=== PATIENT | male | born 1970 | race Caucasian/White ===

== ENCOUNTER 2024-12-19 13:19 | Observation (INO) ==
--- NOTE | 2024-12-19 13:32 | DR.ABDMALE ---
HPI Time seen Time Seen by Provider: 12/19/24 13:31 Reviewed Nurses Notes Review: Yes PE Vital Signs Vital Signs: Temp Pulse Resp BP Pulse Ox O2 Del Method 12/19/24 14:42 18 12/19/24 14:12 22 12/19/24 13:20 98.6 F 81 22 145/71 94 L Room Air ROR Labs Reviewed 12/19/24 13:50 12/19/24 13:50 Laboratory: WBC 11.0 X10^3/uL (3.6-10.0) H 12/19/24 13:50 RBC 5.26 X10^6/uL (4.7-6.0) 12/19/24 13:50 Hgb 15.8 g/dL (13.5-18.0) 12/19/24 13:50 Hct 47.1 % (42.0-54.0) 12/19/24 13:50 MCV 89.7 fL (80.0-100.0) 12/19/24 13:50 MCH 30.1 pg (27.0-34.0) 12/19/24 13:50 MCHC 33.6 g/dL (33.0-35.0) 12/19/24 13:50 RDW 16.0 % (11.6-16.5) 12/19/24 13:50 Plt Count 153 X10^3/uL (150.0-450.0) 12/19/24 13:50 MPV 9.4 fL (7.4-11.0) 12/19/24 13:50 Neut % (Auto) 72.3 % (42.0-75.0) 12/19/24 13:50 Lymph % (Auto) 19.0 % (21.0-51.0) L 12/19/24 13:50 [place] % (Auto) 7.4 % (0.0-13.0) 12/19/24 13:50 Eos % (Auto) 0.5 % (0.9-2.9) L 12/19/24 13:50 Baso % (Auto) 0.8 % (0.2-1.0) 12/19/24 13:50 Neut # (Auto) 8.0 x10^3/uL (2.2-4.8) H 12/19/24 13:50 Lymph # (Auto) 2.1 X10^3/uL (1.3-2.9) 12/19/24 13:50 [place] # (Auto) 0.8 x10^3/uL (0.3-0.8) 12/19/24 13:50 Eos # (Auto) 0.1 x10^3/uL (0.0-0.2) 12/19/24 13:50 Baso # (Auto) 0.1 X10^3/uL (0.0-0.1) 12/19/24 13:50 Absolute Nucleated RBC 0.1 /100WBC 12/19/24 13:50 Sodium 134 mmol/L (136-145) L 12/19/24 13:50 Corrected Sodium 138 mmol/L (136-145) 12/19/24 13:50 Potassium 3.4 mmol/L (3.5-5.1) L 12/19/24 13:50 Chloride 100 mmol/L (98-107) 12/19/24 13:50 Carbon Dioxide 23.4 mmol/L (21-32) 12/19/24 13:50 BUN 16 mg/dL (7-18) 12/19/24 13:50 Creatinine 0.90 mg/dL (0.70-1.30) 12/19/24 13:50 Est GFR (MDRD) Af Amer > 60 (>60) 12/19/24 13:50 Est GFR (MDRD) Non-Af > 60 (>60) 12/19/24 13:50 Glucose 247 mg/dL (65-99) H 12/19/24 13:50 Calcium 8.4 mg/dL (8.5-10.1) L 12/19/24 13:50 Corrected Calcium 9.4 mg/dL (8.5-10.1) 12/19/24 13:50 Magnesium 1.7 mg/dL (2.0-2.9) L 12/19/24 13:50 Total Bilirubin 0.50 mg/dL (0.2-1.0) 12/19/24 13:50 AST 26 Units/L (15-37) 12/19/24 13:50 ALT 31 Units/L (12-78) 12/19/24 13:50 Alkaline Phosphatase 87 Units/L (46-116) 12/19/24 13:50 B-Natriuretic Peptide 6.7 pg/mL (0-79) 12/19/24 13:50 Total Protein 6.3 g/dL (6.4-8.2) L 12/19/24 13:50 Albumin 2.8 g/dL (3.4-5.0) L 12/19/24 13:50 Globulin 3.5 g/dL (2.5-4.5) 12/19/24 13:50 Albumin/Globulin Ratio 0.8 Ratio (1.1-2.1) L 12/19/24 13:50 Amylase 11 Units/L (25-115) L 12/19/24 13:50 Lipase 9 Units/L (16-77) L 12/19/24 13:50 Opioid Opioid Risk Tool Total: 0 Total Score Risk Category: Low Risk Copyright: David JANG predicting aberrant behaviors Discharge Plan Discharge Plan Patient Disposition: 01 HOME, SELF-CARE Condition: Stable Orders to Discharge Patient Discharge Orders: Transfer (Routine); Ordered 12/19/24 Ordered By: YANA MEIER
[2024-12-19] MEDS: ZOFRAN INJ 4 MG VIAL IVP ONE (13:52)
[2024-12-19] MEDS: DEMEROL INJ IVP ONE (14:12)
[2024-12-19] MEDS: NS 1,000 ML IV 1,000 ML IV SCH (14:18)
[2024-12-19 14:22] LABS: BASOPHILS # (AUTO) 0.1 X10^3/uL (0.0-0.1); BASOPHILS % (AUTO) 0.8 % (0.2-1.0); EOSINOPHILS # (AUTO) 0.1 x10^3/uL (0.0-0.2); EOSINOPHILS % (AUTO) 0.5 % (0.9-2.9); HEMATOCRIT 47.1 % (42.0-54.0); HEMOGLOBIN 15.8 g/dL (13.5-18.0); LYMPHOCYTES # (AUTO) 2.1 X10^3/uL (1.3-2.9); MEAN CORPUSCULAR HEMOGLOBIN 30.1 pg (27.0-34.0); MEAN CORPUSCULAR HGB CONC 33.6 g/dL (33.0-35.0); MEAN CORPUSCULAR VOLUME 89.7 fL (80.0-100.0); MEAN PLATELET VOLUME 9.4 fL (7.4-11.0); MONOCYTES # (AUTO) 0.8 x10^3/uL (0.3-0.8); MONOCYTES % (AUTO) 7.4 % (0.0-13.0); NEUTROPHILS % (AUTO) 72.3 % (42.0-75.0); PLATELET COUNT 153 X10^3/uL (150.0-450.0); RED BLOOD COUNT 5.26 X10^6/uL (4.7-6.0)
[2024-12-19 14:26] LABS: ALANINE AMINOTRANSFERASE 31 Units/L (12-78); ALBUMIN 2.8 g/dL (3.4-5.0); ALKALINE PHOSPHATASE 87 Units/L (46-116); AMYLASE 11 Units/L (25-115); ASPARTATE AMINO TRANSFERASE 26 Units/L (15-37); BLOOD UREA NITROGEN 16 mg/dL (7-18); CALCIUM 8.4 mg/dL (8.5-10.1); CARBON DIOXIDE 23.4 mmol/L (21-32); CHLORIDE 100 mmol/L (98-107); COR CA(FOR HYPOALB) 9.4 mg/dL (8.5-10.1); COR NA(FOR HYPERGLY) 138 mmol/L (136-145); GLUCOSE 247 mg/dL (65-99); LIPASE 9 Units/L (16-77); POTASSIUM 3.4 mmol/L (3.5-5.1); SODIUM 134 mmol/L (136-145); TOTAL PROTEIN 6.3 g/dL (6.4-8.2); eGFR NON BLACK RACES > 60 (>60)
[2024-12-19] MEDS: BENTYL I.M. INJ 10 MG IM ONE (14:43)
[2024-12-19 15:15] LABS: MAGNESIUM 1.7 mg/dL (2.0-2.9)
[2024-12-19] MEDS: PROTONIX INJ 40 MG VIAL IVP ONE (15:37)
[2024-12-19] MEDS: SOLU-Medrol 125 MG VIAL IVP ONE (15:41)
--- NOTE | 2024-12-19 15:46 | CT ---
EXAMINATION: ABDOMEN/PELVIS W/O CON HISTORY: ABD PAIN; . COMPARISON: None. TECHNIQUE: Unenhanced axial images were obtained through the abdomen and pelvis using renal stone protocol. Reformatted images were obtained as well. Lack of oral and IV contrast limits diagnostic sensitivity The above CT scan was done with automated exposure control and the mA and kV was adjusted to obtain quality images according to patient size. FINDINGS: Lung bases: No acute findings Liver: No acute findings or focal lesions. GB/Biliary: Cholecystectomy. No dilated ducts Spleen: Normal size and density Pancreas: No acute findings. No pseudocyst or dilated duct Adrenal Glands: No mass Kidneys: No obstructing stone, hydronephrosis or solid lesions. Abdominal aorta: Tapers normally Retroperitoneum: No pathologically enlarged lymph nodes Bowel: There is diffuse pancolitis most severe in the transverse colon and right colon. No free air, pneumatosis or abscess. This can be seen with infectious or inflammatory process, Crohn's disease or ulcerative colitis, ischemia. No CT evidence for appendicitis or obstruction. Periumbilical hernia containing fat Bladder/: Ureters and bladder unremarkable. Prostate and seminal vesicles are intact Osseous: Multilevel degenerative changes in the spine. No acute findings or bony lesions. IMPRESSION: Diffuse pancolitis. No free air, pneumatosis or abscess. Consider endoscopy posttreatment. No CT evidence for appendicitis obstruction, obstructing renal stone THIS IS AN ELECTRONICALLY VERIFIED FINAL REPORT 12/19/2024 3:43 PM - Electronically signed by Dilip Dotson MD
[2024-12-19] MEDS: NICOTINE PATCH TD SCH (19:48)
[2024-12-19] MEDS: NORCO 5/325 MG TAB PO PRN (19:48)
--- NOTE | 2024-12-19 20:14 | DR.H&P ---
H&P History & Physical for Day of: H&P Date: 12/19/24 Chief Complaint Chief Complaint: abdominal pain History of Present Illness History of Present Illness: 54-year-old male visiting the area with known history of intermittent colitis with exacerbation approxi once a year who presented with a several hour history of abdominal pain and was evaluated in the emergency room. CT scan consistent with pancolitis of the colon primarily involving the transverse colon which is the area of his pain. Past history of tobacco abuse, COPD, hypertension, gastro-esophageal reflux, and hyperlipidemia. Patient be admitted for IV antibiotics and steroids. Also will require serial examinations of the abdomen. Past Medical History Past Medical History: Anxiety, Arthritis, COPD, GERD and Hypertension Additional Medical History: tobacco abuse Past Surgical History Surgical History: Cholecystectomy and Tonsillectomy Family History Family Medical History: Diabetes Mellitus, Cancer, Coronary Artery Disease, Heart Failure and Hypertension Social History Does patient currently use any type of tobacco product: Yes Type of Tobacco Use: Cigarettes How many years tobacco product used: 32 Packs per day or dips/chews per day: 1 Does any household member use tobacco: Yes Alcohol Use: None Drug Use: None Medications Home Medications: Home Medications Medication Instructions Recorded Confirmed Type albuterol sulfate 90 mcg/actuation 2 puff inhalation Q 4H PRN 12/19/24 12/19/24 History aerosol inhaler aspirin 81 mg tablet 81 mg PO HS 12/19/24 5 History carisoprodol 350 mg tablet (Soma) 350 mg PO Q6H PRN mu scle spasms 12/19/24 12/19/24 History celecoxib 200 mg capsule 200 mg PO QDAY 12/19/2404/06 History glipizide 10 mg tablet, extended 10 mg PO BID 12/19/24 12/19/24 History release 24 hr hydrochlorothiazide 12.5 mg tablet 12.5 mg PO QDAY swe lling 12/19/24 12/19/24 History lisinopril 20 mg tablet 20 mg PO QDAY blood pressure 12/19/24 12/19/24 History lorazepam 1 mg tablet (Ativan) 1 mg PO Q6HR PRN Anxiet y 12/19/24 12/19/24 History lorazepam 2 mg tablet (Ativan) 2 mg PO HS 12/19/2404/06 History omeprazole 20 mg capsule,delayed 20 mg PO HS 12/19/24 12/19/24 History release oxycodone-acetaminophen 5 mg-325 1 - 2 tab PO Q6HR PRN Pain 12/19/24 12/19/24 History mg tablet (Percocet) pioglitazone 30 mg tablet 30 mg PO QAM 12/19/24 History ropinirole 3 mg tablet 6 mg PO QPM restless legs 12/19/24 History rosuvastatin 20 mg tablet 20 mg PO QPM cholesterol 04/0612/19/24 History Allergies Allergies Allergy/AdvReac Type Severity Reaction Status Date / Time cephalexin (From [place]yst) Allergy Verified 12/19/24 13:27 morphine Allergy Verified 12/19/24 13:27 Labs 12/19/24 13:50 12/19/24 13:50 Labs: Laboratory WBC 11.0 X10^3/uL (3.6-10.0) H 12/19/24 13:50 RBC 5.26 X10^6/uL (4.7-6.0) 12/19/24 13:50 Hgb 15.8 g/dL (13.5-18.0) 12/19/24 13:50 Hct 47.1 % (42.0-54.0) 12/19/24 13:50 MCV 89.7 fL (80.0-100.0) 12/19/24 13:50 MCH 30.1 pg (27.0-34.0) 12/19/24 13:50 MCHC 33.6 g/dL (33.0-35.0) 12/19/24 13:50 RDW 16.0 % (11.6-16.5) 12/19/24 13:50 Plt Count 153 X10^3/uL (150.0-450.0) 12/19/24 13:50 MPV 9.4 fL (7.4-11.0) 12/19/24 13:50 Neut % (Auto) 72.3 % (42.0-75.0) 12/19/24 13:50 Lymph % (Auto) 19.0 % (21.0-51.0) L 12/19/24 13:50 [place] % (Auto) 7.4 % (0.0-13.0) 12/19/24 13:50 Eos % (Auto) 0.5 % (0.9-2.9) L 12/19/24 13:50 Baso % (Auto) 0.8 % (0.2-1.0) 12/19/24 13:50 Neut # (Auto) 8.0 x10^3/uL (2.2-4.8) H 12/19/24 13:50 Lymph # (Auto) 2.1 X10^3/uL (1.3-2.9) 12/19/24 13:50 Leon # (Auto) 0.8 x10^3/uL (0.3-0.8) 12/19/24 13:50 Eos # (Auto) 0.1 x10^3/uL (0.0-0.2) 12/19/24 13:50 Baso # (Auto) 0.1 X10^3/uL (0.0-0.1) 12/19/24 13:50 Absolute Nucleated RBC 0.1 /100WBC 12/19/24 13:50 Sodium 134 mmol/L (136-145) L 12/19/24 13:50 Corrected Sodium 138 mmol/L (136-145) 12/19/24 13:50 Potassium 3.4 mmol/L (3.5-5.1) L 12/19/24 13:50 Chloride 100 mmol/L (98-107) 12/19/24 13:50 Carbon Dioxide 23.4 mmol/L (21-32) 12/19/24 13:50 BUN 16 mg/dL (7-18) 12/19/24 13:50 Creatinine 0.90 mg/dL (0.70-1.30) 12/19/24 13:50 Est GFR (MDRD) Af Amer > 60 (>60) 12/19/24 13:50 Est GFR (MDRD) Non-Af > 60 (>60) 12/19/24 13:50 Glucose 247 mg/dL (65-99) H 12/19/24 13:50 Calcium 8.4 mg/dL (8.5-10.1) L 12/19/24 13:50 Corrected Calcium 9.4 mg/dL (8.5-10.1) 12/19/24 13:50 Magnesium 1.7 mg/dL (2.0-2.9) L 12/19/24 13:50 Total Bilirubin 0.50 mg/dL (0.2-1.0) 12/19/24 13:50 AST 26 Units/L (15-37) 12/19/24 13:50 ALT 31 Units/L (12-78) 12/19/24 13:50 Alkaline Phosphatase 87 Units/L (46-116) 12/19/24 13:50 B-Natriuretic Peptide 6.7 pg/mL (0-79) 12/19/24 13:50 Total Protein 6.3 g/dL (6.4-8.2) L 12/19/24 13:50 Albumin 2.8 g/dL (3.4-5.0) L 12/19/24 13:50 Globulin 3.5 g/dL (2.5-4.5) 12/19/24 13:50 Albumin/Globulin Ratio 0.8 Ratio (1.1-2.1) L 12/19/24 13:50 Amylase 11 Units/L (25-115) L 12/19/24 13:50 Lipase 9 Units/L (16-77) L 12/19/24 13:50 Review of Systems Constitutional: See HPI Eyes: No Symptoms Reported ENT: No Symptoms Reported Respiratory: No Symptoms Reported Cardiovascular: No Symptoms Reported Gastrointestinal: See HPI Genitourinary: No Symptoms Reported Musculoskeletal: No Symptoms Reported Skin: No Symptoms Reported Neurological: No Symptoms Reported Physical Exam Vital Signs: Vital Signs Temperature 98.2 F Temperature 98.6 F Pulse Rate [Radial] 76 Pulse Rate 81 Respiratory Rate 16 Respiratory Rate 18 Respiratory Rate 22 Respiratory Rate 22 Blood Pressure [Left Arm] 116/62 Blood Pressure 147/72 Blood Pressure 145/71 O2 Sat by Pulse Oximetry 94 O2 Sat by Pulse Oximetry 94 Oriented: Normal, Time, Person and Place Eyes: Normal Ear: Normal Nose: Normal Throat: Normal Respiratory: Clear Throughout Cardiovascular: Normal : Normal Auscultation: Bowel Sounds: Normal Palpation: Normal Tenderness: Epigastric (diffusely tender with no rebound) Skin: Normal Musculoskeletal: Normal Psychiatric: Anxiety Mood Description: Anxious Affect: Normal Speech Pattern: Clear and Appropriate Assessment/Plan (1) Pancolitis: Status: Acute Plan: IV antibiotics. IV steroids (2) Chronic obstructive pulmonary disease, unspecified: Status: Acute Plan: Home medications (3) Tobacco abuse: Status: Acute Plan: Nicotine patch (4) Type 2 diabetes mellitus without complications: Status: Acute Plan: Diabetic diet, sliding scale insulin (5) Arthritis: Status: Acute Plan: Home medications (6) Essential (primary) hypertension: Status: Acute Plan: home medications (7) Anxiety: Status: Acute Plan: Home medications (8) Gastro-esophageal reflux disease without esophagitis: Status: Acute Plan: Home medications (9) Hyperlipidemia: Status: Acute Plan: Home medications (10) Restless leg syndrome: Status: Acute Plan: Home medications Review H&P Reviewed: Yes Patient was examined?: Yes
[2024-12-19] MEDS ORDERED: PROVENTIL NEB TX 0.083% 2.5MG/ 3ML NEB PRN (20:17)
[2024-12-19] MEDS ORDERED: NS 250 ML IV 25 ML IV PRN (20:18)
[2024-12-19] MEDS ORDERED: VENTOLIN or PROAIR HFA IN PRN (20:18)
[2024-12-19] MEDS: KLOR-CON PO SCH (20:20)
[2024-12-19] MEDS: MAG-OX TAB PO SCH (20:20)
[2024-12-19] MEDS: PHENERGAN INJ 25 MG IM PRN (20:21)
[2024-12-19] MEDS ORDERED: CONSULT PHARMACY - POTASSIUM & MAGNESIUM XX SCH (21:00)
[2024-12-19] MEDS: LR 1,000 ML IV 1,000 ML IV SCH (21:28)
[2024-12-19] MEDS: SOLU-Medrol 40 MG VIAL IVP SCH (21:29)
[2024-12-19] MEDS: ZOSYN VIAL 3.375 GRAMS 3.375 G in NS 100 ML IV 100 ML IV SCH (21:29)
[2024-12-19] MEDS: SOMA TAB 350 MG PO SCH (21:30)
[2024-12-19] MEDS: ATIVAN TAB 1 MG PO SCH (21:36)
[2024-12-19] MEDS: CRESTOR TAB 10 MG PO SCH (21:36)
[2024-12-20] MEDS: NovoLIN R (or HumuLIN R) SUBCUT PRN (01:08)
[2024-12-20] MEDS: ATIVAN TAB 1 MG PO PRN (01:17)
[2024-12-20] MEDS: DEMEROL INJ ONE (02:36)
[2024-12-20] MEDS: SOLU-Medrol 125 MG VIAL ONE (02:36)
[2024-12-20] MEDS: STERILE WATER IRRIGATION IR ONE (02:36)
[2024-12-20] MEDS: ZOFRAN INJ 4 MG VIAL IVP PRN (05:46)
[2024-12-20] MEDS: DILAUDID INJ IVP PRN (05:46)
[2024-12-20 05:56] LABS: BASOPHILS % (AUTO) 0.2 % (0.2-1.0); HEMATOCRIT 42.9 % (42.0-54.0); HEMOGLOBIN 14.9 g/dL (13.5-18.0); LYMPHOCYTES % (AUTO) 11.4 % (21.0-51.0); MEAN CORPUSCULAR HGB CONC 34.7 g/dL (33.0-35.0); MEAN CORPUSCULAR VOLUME 89.4 fL (80.0-100.0); MEAN PLATELET VOLUME 9.6 fL (7.4-11.0); MONOCYTES # (AUTO) 0.3 x10^3/uL (0.3-0.8); MONOCYTES % (AUTO) 2.9 % (0.0-13.0); NEUTROPHILS # (AUTO) 7.7 x10^3/uL (2.2-4.8); NEUTROPHILS % (AUTO) 85.5 % (42.0-75.0); PLATELET COUNT 150 X10^3/uL (150.0-450.0); RED CELL DISTRIBUTION WIDTH 16.1 % (11.6-16.5)
[2024-12-20 06:06] LABS: ALANINE AMINOTRANSFERASE 29 Units/L (12-78); ALBUMIN 2.5 g/dL (3.4-5.0); ALKALINE PHOSPHATASE 73 Units/L (46-116); ASPARTATE AMINO TRANSFERASE 19 Units/L (15-37); BLOOD UREA NITROGEN 15 mg/dL (7-18); CALCIUM 8.4 mg/dL (8.5-10.1); CARBON DIOXIDE 30.2 mmol/L (21-32); CHLORIDE 101 mmol/L (98-107); COR CA(FOR HYPOALB) 9.6 mg/dL (8.5-10.1); COR NA(FOR HYPERGLY) 141 mmol/L (136-145); CREATININE 0.83 mg/dL (0.70-1.30); GLUCOSE 292 mg/dL (65-99); MAGNESIUM 1.9 mg/dL (2.0-2.9); POTASSIUM 3.8 mmol/L (3.5-5.1); SODIUM 136 mmol/L (136-145); TOTAL PROTEIN 5.8 g/dL (6.4-8.2); eGFR NON BLACK RACES > 60 (>60)
[2024-12-20] MEDS ORDERED: CONSULT PHARMACY - POTASSIUM & MAGNESIUM XX SCH (08:00)
[2024-12-20] MEDS ORDERED: PATIENT'S HOME MEDICATION (Hydrochlorothiazide 12.5 mg tablet) PO SCH (09:00)
[2024-12-20] MEDS: K-DUR TAB 20 MEQ PO SCH (09:03)
[2024-12-20] MEDS: CELEBREX PO SCH (09:03)
[2024-12-20] MEDS: ZESTRIL TAB 20 MG PO SCH (09:04)
[2024-12-20] MEDS: MAG-OX TAB PO SCH (09:04)
[2024-12-20] MEDS: PROTONIX TAB 40 MG PO SCH (09:04)
[2024-12-20] MEDS: HYDROCHLOROTHIAZIDE 12.5 MG CAP PO SCH (09:04)
[2024-12-20] MEDS: ASPIRIN EC 81 MG PO SCH (09:04)
[2024-12-20] MEDS: ZESTRIL TAB 20 MG ONE (11:19)
[2024-12-20] MEDS: LOVENOX INJ 40 MG SYR SC SCH (12:55)
[2024-12-20] MEDS: TYLENOL 325 MG TAB PO PRN (16:17)
--- NOTE | 2024-12-20 17:09 | NOTE.SOAP ---
Soap Note Note for Day of Date of Exam: 12/20/24 Subjective Data Subjective Data: Patient admitted with pancolitis. Started on IV antibiotics and IV Solu-Medrol. Patient feels better today abdomen is noted to be less tender. Objective Data Temperature: 97.5 F Pulse Rate: 60 Respiratory Rate: 20 Blood Pressure: 104/55 O2 Sat by Pulse Oximetry: 91 Objective Data: Abdomen less tender in the epigastric region. Blood sugars greater than 300 as expected with history of diabetes and use of steroids. White blood cell count=9.0 glucose hovering around 300 Assessment Assessment: Pancolitis of the colon appears to be improving symptomatically. Plan Plan: Continue antibiotics and steroids. Will monitor blood sugars. Will begin a diet. Follow-up with routine labs and exams
[2024-12-20] MEDS: SOLU-Medrol 125 MG VIAL IVP SCH (20:56)
[2024-12-20] MEDS: SNACK - Diabetic Appropriate PO SCH (20:57)
[2024-12-20] MEDS: REQUIP PO SCH (22:08)
[2024-12-20] MEDS: NEURONTIN TAB 600 MG PO SCH (22:08)
[2024-12-21 00:30] VITALS: O2SAT 94
[2024-12-21 06:12] LABS: BLOOD UREA NITROGEN 18 mg/dL (7-18); CALCIUM 8.4 mg/dL (8.5-10.1); CARBON DIOXIDE 25.6 mmol/L (21-32); CHLORIDE 103 mmol/L (98-107); COR NA(FOR HYPERGLY) 143 mmol/L (136-145); CREATININE 0.83 mg/dL (0.70-1.30); GLUCOSE 331 mg/dL (65-99); MAGNESIUM 2.2 mg/dL (2.0-2.9); POTASSIUM 4.1 mmol/L (3.5-5.1); SODIUM 137 mmol/L (136-145); eGFR NON BLACK RACES > 60 (>60)
[2024-12-21 06:24] LABS: BASOPHILS % (AUTO) 0.4 % (0.2-1.0); HEMATOCRIT 41.6 % (42.0-54.0); HEMOGLOBIN 14.2 g/dL (13.5-18.0); LYMPHOCYTES # (AUTO) 1.7 X10^3/uL (1.3-2.9); LYMPHOCYTES % (AUTO) 13.8 % (21.0-51.0); MEAN CORPUSCULAR HEMOGLOBIN 30.4 pg (27.0-34.0); MEAN CORPUSCULAR HGB CONC 34.2 g/dL (33.0-35.0); MEAN PLATELET VOLUME 9.9 fL (7.4-11.0); MONOCYTES # (AUTO) 0.6 x10^3/uL (0.3-0.8); MONOCYTES % (AUTO) 4.6 % (0.0-13.0); NEUTROPHILS # (AUTO) 9.9 x10^3/uL (2.2-4.8); NEUTROPHILS % (AUTO) 81.2 % (42.0-75.0); PLATELET COUNT 173 X10^3/uL (150.0-450.0); RED BLOOD COUNT 4.67 X10^6/uL (4.7-6.0); RED CELL DISTRIBUTION WIDTH 15.8 % (11.6-16.5); WHITE BLOOD COUNT 12.2 X10^3/uL (3.6-10.0)
[2024-12-21 07:32] VITALS: BP 143/89; PULSE 82; RESP 17; TEMP 97.4
[2024-12-21 08:35] VITALS: BMI 47.5
[2024-12-21] MEDS: ZESTRIL TAB 20 MG ONE (08:44)
--- NOTE | 2024-12-21 09:52 | W.DIS.FURT ---
Summary of Discharge Discharge Summary of Date Date of Exam: 12/21/24 Admission Date Date of Admission: 12/19/24 Admission Diagnosis Patient Problems (Updated 12/19/24 @ 20:12 by David Rosario) Pancolitis (Acute) K52.9 Hospital Course: This is a 54-year-old male with history of intermittent colitis with exacerbations presented with abdominal pain to the emergency room primarily in the epigastric region and CT scan consistent with pancolitis ,primarily of the transverse colon. Patient admitted and placed on IV antibiotics and IV Solu- Medrol. His pain is relieved. His white blood cell count is down to 12,000. He will be discharged home on his usual home medications plus Flagyl 500 mg 3 times daily x 1 week and a tapering dose of prednisone. Patient will follow-up with his primary care physician or with his equine pharmacology technician in [place]. Vital Signs: Vital Signs (72 hours) 12/19/24 13:20 12/19/24 14:12 12/19/24 14:42 Temperature 98.6 F Pulse Rate 81 Pulse Rate [Radial] Respiratory Rate 22 22 18 Blood Pressure 145/71 Blood Pressure [Left Arm] O2 Sat by Pulse Oximetry 94 L Oxygen Delivery Method Room Air 12/19/24 18:10 12/19/24 18:30 12/19/24 18:36 Temperature 98.2 F Pulse Rate Pulse Rate [Radial] 76 Respiratory Rate 16 Blood Pressure 147/72 Blood Pressure [Left Arm] 116/62 O2 Sat by Pulse Oximetry 94 L Oxygen Delivery Method Room Air Room Air 12/19/24 19:00 12/19/24 19:48 12/19/24 20:00 Temperature 98.6 F Pulse Rate Pulse Rate [Radial] 79 Respiratory Rate 16 20 Blood Pressure Blood Pressure [Left Arm] 122/70 O2 Sat by Pulse Oximetry 94 L Oxygen Delivery Method Room Air Room Air 12/19/24 20:18 12/19/24 20:19 12/19/24 20:48 Temperature Pulse Rate 83 Pulse Rate [Radial] Respiratory Rate 19 Blood Pressure Blood Pressure [Left Arm] O2 Sat by Pulse Oximetry 94 L Oxygen Delivery Method Room Air 12/20/24 00:00 12/20/24 04:00 12/20/24 05:46 Temperature 97.7 F 97.7 F Pulse Rate Pulse Rate [Radial] 70 63 Respiratory Rate 20 18 18 Blood Pressure Blood Pressure [Left Arm] 125/62 110/60 O2 Sat by Pulse Oximetry 95 93 L Oxygen Delivery Method CPAP CPAP 12/20/24 06:50 12/20/24 07:00 12/20/24 08:00 Temperature 97.4 F L Pulse Rate Pulse Rate [Radial] 81 Respiratory Rate 18 20 Blood Pressure Blood Pressure [Left Arm] 112/58 O2 Sat by Pulse Oximetry 91 L Oxygen Delivery Method Room Air Room Air 12/20/24 08:48 12/20/24 12:00 12/20/24 16:00 Temperature 97.5 F L 97.6 F Pulse Rate Pulse Rate [Radial] 60 86 Respiratory Rate 20 20 Blood Pressure Blood Pressure [Left Arm] 104/55 120/57 O2 Sat by Pulse Oximetry 91 L 93 L Oxygen Delivery Method CPAP Room Air Room Air 12/20/24 16:17 12/20/24 17:09 12/20/24 17:17 Temperature 97.5 F L Pulse Rate 60 Pulse Rate [Radial] Respiratory Rate 20 20 20 Blood Pressure 104/55 Blood Pressure [Left Arm] O2 Sat by Pulse Oximetry 91 L Oxygen Delivery Method 12/20/24 19:00 12/20/24 20:00 12/20/24 20:30 Temperature 97.8 F Pulse Rate Pulse Rate [Radial] 73 Respiratory Rate 18 Blood Pressure Blood Pressure [Left Arm] 114/71 O2 Sat by Pulse Oximetry 100 Oxygen Delivery Method Room Air Room Air Room Air 12/20/24 21:09 12/20/24 21:39 12/20/24 22:15 Temperature Pulse Rate Pulse Rate [Radial] Respiratory Rate 20 18 18 Blood Pressure Blood Pressure [Left Arm] O2 Sat by Pulse Oximetry Oxygen Delivery Method 12/20/24 23:15 12/21/24 00:00 12/21/24 04:00 Temperature 97.7 F 97.7 F Pulse Rate Pulse Rate [Radial] 62 61 Respiratory Rate 16 19 20 Blood Pressure Blood Pressure [Left Arm] 95/62 97/64 O2 Sat by Pulse Oximetry 94 L 94 L Oxygen Delivery Method Room Air Room Air 12/21/24 07:00 12/21/24 07:31 Temperature 97.4 F L Pulse Rate Pulse Rate [Radial] 82 Respiratory Rate 17 Blood Pressure Blood Pressure [Left Arm] 143/89 O2 Sat by Pulse Oximetry 94 L Oxygen Delivery Method Room Air Room Air Labs: Laboratory Last Values WBC 12.2 X10^3/uL (3.6-10.0) H 12/21/24 05:22 RBC 4.67 X10^6/uL (4.7-6.0) L 12/21/24 05:22 Hgb 14.2 g/dL (13.5-18.0) 12/21/24 05:22 Hct 41.6 % (42.0-54.0) L 12/21/24 05:22 MCV 89.0 fL (80.0-100.0) 12/21/24 05:22 MCH 30.4 pg (27.0-34.0) 12/21/24 05:22 MCHC 34.2 g/dL (33.0-35.0) 12/21/24 05:22 RDW 15.8 % (11.6-16.5) 12/21/24 05:22 Plt Count 173 X10^3/uL (150.0-450.0) 12/21/24 05:22 MPV 9.9 fL (7.4-11.0) 12/21/24 05:22 Neut % (Auto) 81.2 % (42.0-75.0) H 12/21/24 05:22 Lymph % (Auto) 13.8 % (21.0-51.0) L 12/21/24 05:22 [place] % (Auto) 4.6 % (0.0-13.0) 12/21/24 05:22 Eos % (Auto) 0.0 % (0.9-2.9) L 12/21/24 05:22 Baso % (Auto) 0.4 % (0.2-1.0) 12/21/24 05:22 Neut # (Auto) 9.9 x10^3/uL (2.2-4.8) H 12/21/24 05:22 Lymph # (Auto) 1.7 X10^3/uL (1.3-2.9) 12/21/24 05:22 [place] # (Auto) 0.6 x10^3/uL (0.3-0.8) 12/21/24 05:22 Eos # (Auto) 0.0 x10^3/uL (0.0-0.2) 12/21/24 05:22 Baso # (Auto) 0.0 X10^3/uL (0.0-0.1) 12/21/24 05:22 Absolute Nucleated RBC 0.1 /100WBC 12/21/24 05:22 Sodium 137 mmol/L (136-145) 12/21/24 05:22 Corrected Sodium 143 mmol/L (136-145) 12/21/24 05:22 Potassium 4.1 mmol/L (3.5-5.1) 12/21/24 05:22 Chloride 103 mmol/L (98-107) 12/21/24 05:22 Carbon Dioxide 25.6 mmol/L (21-32) 12/21/24 05:22 BUN 18 mg/dL (7-18) 12/21/24 05:22 Creatinine 0.83 mg/dL (0.70-1.30) 12/21/24 05:22 Est GFR (MDRD) Af Amer > 60 (>60) 12/21/24 05:22 Est GFR (MDRD) Non-Af > 60 (>60) 12/21/24 05:22 Glucose 331 mg/dL (65-99) H 12/21/24 05:22 POC Glucose (mg/dL) 320 mg/dL (65-99) H 12/21/24 05:23 Hemoglobin A1c 8.9 % 12/20/24 05:22 Calcium 8.4 mg/dL (8.5-10.1) L 12/21/24 05:22 Corrected Calcium 9.6 mg/dL (8.5-10.1) 12/20/24 05:22 Magnesium 2.2 mg/dL (2.0-2.9) 12/21/24 05:22 Total Bilirubin 0.40 mg/dL (0.2-1.0) 12/20/24 05:22 AST 19 Units/L (15-37) 12/20/24 05:22 ALT 29 Units/L (12-78) 12/20/24 05:22 Alkaline Phosphatase 73 Units/L (46-116) 12/20/24 05:22 B-Natriuretic Peptide 6.7 pg/mL (0-79) 12/19/24 13:50 Total Protein 5.8 g/dL (6.4-8.2) L 12/20/24 05:22 Albumin 2.5 g/dL (3.4-5.0) L 12/20/24 05:22 Globulin 3.3 g/dL (2.5-4.5) 12/20/24 05:22 Albumin/Globulin Ratio 0.8 Ratio (1.1-2.1) L 12/20/24 05:22 Amylase 11 Units/L (25-115) L 12/19/24 13:50 Lipase 9 Units/L (16-77) L 12/19/24 13:50 Reason For Visit: ACUTE PANCOLITIS ABDOMINAL PAIN Discharge Date Discharge Date: 12/21/24 Discharge Diagnosis All Active Problems (Updated 12/19/24 @ 20:12 by David Rosario) Restless leg syndrome (Acute) Hyperlipidemia (Acute) Gastro-esophageal reflux disease without esophagitis (Acute) Anxiety (Acute) Essential (primary) hypertension (Acute) Arthritis (Acute) Type 2 diabetes mellitus without complications (Acute) Tobacco abuse (Acute) Chronic obstructive pulmonary disease, unspecified (Acute) Pancolitis (Acute) Plan of Treatment: Continue with present treatment and follow up plan. Pt is to keep follow up appointment as instructed and take medications as ordered. Discharge Medications Discharge Medications: cephalexin (From Keflex) Allergy (Verified 12/19/24 13:27) morphine Allergy (Verified 12/19/24 13:27) CONTINUE taking the following medications albuterol sulfate 90 mcg/actuation aerosol inhaler 2 puff inhalation Q4H PRN 12/19/24 [History] aspirin 81 mg tablet 81 mg PO HS 12/19/24 [History] carisoprodol 350 mg tablet (Soma) 350 mg PO Q6H PRN muscle spasms 12/19/24 [History] celecoxib 200 mg capsule 200 mg PO QDAY 12/19/24 [History] glipizide 10 mg tablet, extended release 24 hr 10 mg PO BID 12/19/24 [History] hydrochlorothiazide 12.5 mg tablet 12.5 mg PO QDAY swelling 12/19/24 [History] lisinopril 20 mg tablet 20 mg PO QDAY blood pressure 12/19/24 [History] lorazepam 1 mg tablet (Ativan) 1 mg PO Q6HR PRN Anxiety 12/19/24 [History] lorazepam 2 mg tablet (Ativan) 2 mg PO HS 12/19/24 [History] omeprazole 20 mg capsule,delayed release 20 mg PO HS 12/19/24 [History] oxycodone-acetaminophen 5 mg-325 mg tablet (Percocet) 1 - 2 tab PO Q6HR PRN Pain 12/19/24 [History] pioglitazone 30 mg tablet 30 mg PO QAM 12/19/24 [History] ropinirole 3 mg tablet 6 mg PO QPM restless legs 12/19/24 [History] rosuvastatin 20 mg tablet 20 mg PO QPM cholesterol 12/19/24 [History] Prednisone, tapering dose Flagyl 500 mg TID po Discharge Disposition Assessment: see hospital course Discharge Plan Discharge Plan Hospital Course: This is a 54-year-old male with history of intermittent colitis with exacerbations presented with abdominal pain to the emergency room primarily in the epigastric region and CT scan consistent with pancolitis ,primarily of the transverse colon. Patient admitted and placed on IV antibiotics and IV Solu- Medrol. His pain is relieved. His white blood cell count is down to 12,000. He will be discharged home on his usual home medications plus Flagyl 500 mg 3 times daily x 1 week and a tapering dose of prednisone. Patient will follow-up with his primary care physician or with his equine pharmacology technician in [place]. Patient Disposition: 01 HOME, SELF-CARE Condition: Stable Health Concerns: Post Hospitalization: new medications and changes needed to prevent readmission or further decline. Pt educated and given instructions on all concerns. Care Plan Goals: Problem: Pain/Alteration in Comfort Goal: Improve/ Resolve Pain; Achieve Pain Tolerance Instructions: Take pain medications as prescribed. Contact your primary care provider if your pain is unrelieved or worsens. Follow up with primary care provider as directed. Plan of Treatment: Continue with present treatment and follow up plan. Pt is to keep follow up appointment as instructed and take medications as ordered. Assessment: see hospital course Prescription drug monitoring program results: PDMP reviewed and no concerns identified Prescriptions: New metronidazole 500 mg tablet 500 mg PO Q8H Qty: 21 0RF prednisone 20 mg tablet 40 mg PO QDAY Qty: 28 0RF Rx Instructions: 2 po daily x 7days, 1 po daily x 7 days, 1/2 tab daily x 7 days , then d/c Continued lisinopril 20 mg tablet 20 mg PO QDAY ropinirole 3 mg tablet 6 mg PO QPM rosuvastatin 20 mg tablet 20 mg PO QPM hydrochlorothiazide 12.5 mg tablet 12.5 mg PO QDAY carisoprodol [Soma] 350 mg Tablet 350 mg PO Q6H PRN (Reason: muscle spasms) celecoxib 200 mg capsule 200 mg PO QDAY glipizide 10 mg tablet extended release 24hr 10 mg PO BID oxycodone-acetaminophen [Percocet] 5-325 mg Tablet 1 - 2 tab PO Q6HR PRN (Reason: Pain) lorazepam [Ativan] 2 mg Tablet 2 mg PO HS omeprazole 20 mg Capsule,Delayed Release(Dr/Ec) 20 mg PO HS aspirin 81 mg Tablet 81 mg PO HS lorazepam [Ativan] 1 mg Tablet 1 mg PO Q6HR PRN (Reason: Anxiety) albuterol sulfate 90 mcg/actuation HFA aerosol inhaler 2 puff inhalation Q4H PRN pioglitazone 30 mg tablet 30 mg PO QAM Orders to Discharge Patient Discharge Orders: Discharge (Routine); Ordered 12/21/24 Ordered By: David Rosario Follow ups/Referrals Follow ups/Referrals: [facility] [Primary Care Provider, MEDICAL] - 1 WEEK Referral Note: Dr. Cruz in [place], [place] patient will follow up when he goes back home Instructions Instructions: Managing the Challenge of Quitting Smoking, Abdominal Pain, Adult, [id number], Flank Pain, Adult, [id number] Stand Alone Forms: Excuse From Work or School, Find Help Web Site, Post Hospital Follow Up Care Print Language: MALTESE
== END 2024-12-21 08:50 | disposition home or self-care (01) ==
LOC: MED/SURG 13:19 → ER 13:19 → MED/SURG 18:11
PROVIDERS: ADMIT Surgery; ATTEND Surgery
DX: M19.90 Unspecified osteoarthritis, unspecified site; K21.9 Gastro-esophageal reflux disease without esophagitis; E83.42 Hypomagnesemia; E78.5 Hyperlipidemia, unspecified; J44.9 Chronic obstructive pulmonary disease, unspecified; K52.89 Other specified noninfective gastroenteritis and colitis; E11.65 Type 2 diabetes mellitus with hyperglycemia; G25.81 Restless legs syndrome; I10 Essential (primary) hypertension; E87.1 Hypo-osmolality and hyponatremia; E87.6 Hypokalemia; R10.84 Generalized abdominal pain; F41.8 Other specified anxiety disorders; Z72.0 Tobacco use